=== PATIENT | female | born 1985 | race Caucasian/White ===

== ENCOUNTER 2020-03-08 14:25 | Emergency (ER) | payer SELFPAY ==
[~2020-03-08] VITALS: Ht 149.9 cm; Wt 68.0 kg
[~2020-03-08 14:25] MED LIST: DICYCLOMINE HCL10 MG PO; METOPROLOL SUCC25 MG PO; NORCO 5-325 TA1 EACH PO; ONDANSETRON ODT4 MG SL; OXYCODONE-ACET1 EAC1 PO; TRAZODONE HCL100 MG PO; ZOFRAN4 MG PO
--- NOTE | 2020-03-08 20:25 | EKG ---
[facility] [address] [facility] [place] [address] Signed Normal sinus rhythm Normal ECG When compared with ECG of 07-SEP-2018 08:39, No significant change was found Confirmed by ANA SWIFT MD ([id number] on 03/08/2020 8:25:33 PM Electronically Signed By: ANA SWIFT MD 03/08/202024 PATIENT NAME: MELISA CASILLAS Electrocardiogram DATE OF : 85 PHYSICIAN: ANA SWIFT MD REPORT #: [id number] REPORT IS CONFIDENTIAL AND NOT TO BE RELEASED WITHOUT AUTHORIZATION
== END 2020-03-08 18:45 | disposition home or self-care (01) ==
LOC: ED 14:25
DX: R10.9 Unspecified abdominal pain (principal); I10 Essential (primary) hypertension; Z79.899 Other long term (current) drug therapy
CPT/HCPCS: 74177; 80053; 81001; 83690; 83735; 84703; 85025; 93005; 93010; 96374; 96375; 99284-25; J1170; J1885; J2405; Q9967

== ENCOUNTER 2024-12-09 07:35 | Emergency (ER) | payer SELFPAY ==
[~2024-12-09] VITALS: Ht 149.9 cm; Wt 74.1 kg
[2024-12-09 08:06] LABS: BASOPHILS 0.5 % (0-2); EOSINOPHILS 1.8 % (0-6); HEMATOCRIT 39.7 % (35.0-50.0); HEMOGLOBIN 13.7 g/dL (12.0-18.0); LYMPHOCYTES 18.4 % (24-44); MCH 30.3 (27-36); MCHC 34.5 g/dl (30-36); MCV 88.1 fl (81-99); NEUTROPHILS 73.3 % (39-80); PLATELET COUNT 350 K/uL (140-440); RBC 4.51 M/ul (4.3-5.7); RDW 13.7 (10.5-15.0)
[2024-12-09 08:15] LABS: BILIRUBIN, URINE NEGATIVE (negative); BLOOD/HGB, URINE NEGATIVE (Negative); KETONE, URINE >=80 (Negative); LEUK ESTERASE, URINE NEGATIVE (negative); NITRITE, URINE NEGATIVE (negative)
[2024-12-09 08:20] LABS: ALBUMIN 3.7 g/dL (3.4-5.0); ALBUMIN/GLOBULIN RATIO 0.86 (1.1-2.4); ANION GAP 14.7 (7-21); BILIRUBIN, TOTAL 0.3 mg/dL (0.2-1.0); BUN/CREATININE RATIO 13.75 (6.0-28.6); CALCIUM 9.3 mg/dL (8.5-10.1); CREATININE, SERUM 0.8 mg/dL (0.55-1.02); POTASSIUM 3.7 mmol/L (3.5-5.1)
[2024-12-09 08:22] LABS: EPITHELIAL CELLS, URINE SQUAMOUS 2+ /lpf (0-1+)
[2024-12-09 08:24] LABS: BACTERIA, URINE RARE /hpf (negative); CASTS, URINE NONE SEEN \\lpf; COLLECTION TYPE, URINE CLEAN CATCH; CRYSTALS, URINE NONE SEEN (0-1+); REFLEX CULTURE, URINE No (No); WHITE BLOOD CELLS, URINE 0-1 /HPF (0-5)
[2024-12-09] MEDS ORDERED: ZITHROMAX250 MG PO (10:22)
[2024-12-09 10:29] VITALS: BP 142/90
[2024-12-09] MEDS ORDERED: AZITHROMYCIN 250 MG TAB PO ONE (10:30)
[2024-12-09] MEDS ORDERED: PEPCID20 MG PO (10:34)
== END 2024-12-09 10:38 | disposition home or self-care (01) ==
LOC: ED 07:35
PROVIDERS: Emergency Medicine
DX: R10.12 Left upper quadrant pain (principal); J18.9 Pneumonia, unspecified organism; Z79.899 Other long term (current) drug therapy
CPT/HCPCS: 36415; 74177; 80053; 81001; 83690; 84703; 85025; 99284-25; Q9967